=== PATIENT | male | born 1955 | race Caucasian/White ===

== ENCOUNTER 2019-04-28 08:35 | Outpatient (CLI) | payer MEDICARE, BC ==
[~2019-04-28 08:35] MED LIST: ASPI81TA52 PO; ATOR20TA PO; CARV-50 PO; CLOP75TA35 PO; DESV100T PO; OMEP20CA11 PO; VALA500T PO
[2019-04-28] MEDS ORDERED: iohexol 300mg/ml 100ml inj. ONE (08:50)
== END 2019-04-28 23:59 | disposition home or self-care (01) ==
LOC: 64 CT 08:35
PROVIDERS: ATTEND Surgery
DX: K43.9 Ventral hernia without obstruction or gangrene (principal); I10 Essential (primary) hypertension; Z86.74 Personal history of sudden cardiac arrest; Z87.19 Personal history of other diseases of the digestive system; Z87.39 Personal history of other diseases of the musculoskeletal system and connective tissue; Z98.890 Other specified postprocedural states
CPT/HCPCS: 74177; Q9967